=== PATIENT | female | born 1965 | race Hispanic/Latino ===

== ENCOUNTER → 2019-07-21 | Day surgery (SDC) | payer BC ==
[~2019-07-21] MED LIST: CENTRUM SILVER1 EAC3 PO; CITRACAL + D E1 EACH PO; FENTANYL CITRATE/PF 100MCG/2 ML INJ ONE; HYOSCYAMINE 0.125 MG TAB ONE; METFORMIN HCL500 MG PO; MIDAZOLAM HCL 2 MG/2 ML VIAL ONE; PREPARATION H C26 GM TOP; PROPOFOL IV EMULSION 10 MG/ML 50 ML VIAL ONE
[2019-07-21 17:30] VITALS: BP 113/70
--- NOTE | 2019-07-21 17:57 | Operative Report ---
DATE OF PROCEDURE: 07/21/2019 SURGEON: Pasha Granger MD PROCEDURE: Colonoscopy with polypectomy and biopsies. INDICATIONS FOR COLONOSCOPY: Rectal bleeding, loose stools, history of colon polyps. MEDICATIONS: The patient was done under MAC, please see anesthesiologist's note. PROCEDURE IN DETAIL: With the patient in left lateral decubitus position, a flexible fiberoptic Olympus colonoscope was inserted into the rectum with ease and advanced all the way to the cecum. Mucosa overlying the cecum grossly appeared to be within normal limits. The ileocecal valve was intubated and the scope was advanced into the terminal ileum. Biopsies were obtained. The scope was then withdrawn back into the colon. It was then withdrawn slowly and scattered diverticular disease was noted throughout the colon. Mucosa overlying the ascending and transverse grossly appeared to be within normal limits other than for diverticulosis. The mucosa overlying the left colon revealed some patchy mild inflammatory changes and random biopsies were obtained. A minute polyp was noted in the sigmoid colon that was hot biopsied. The sigmoid colon was excessively spastic and irritable and suboptimally visualized. One rectal polyp was removed per hot biopsy forceps. The scope was then retroflexed into the distal rectum and moderate-sized internal hemorrhoids were noted, none of which was actively bleeding. The scope was then straightened out, it was subsequently withdrawn. The patient tolerated the procedure well. IMPRESSION: 1. Pandiverticulosis. 2. Mild patchy left-sided colitis. 3. Sigmoid colon polyp, hot biopsied. Sigmoid colon was excessively irritable, spastic, and suboptimally visualized. 4. Rectal polyp, hot biopsied. 5. Internal hemorrhoids, none actively bleeding. PLAN: Followup histology. Followup stool studies. Initiate Bentyl 10 mg one p.o. t.i.d. and Visbiome one p.o. b.i.d. and Anucort-HC one suppository b.i.d. x10 days and p.r.n. The patient might benefit from a followup colonoscopy in 3 years. Pasha Granger MD [facility] [place] /[id number] cc: Hans Blue MD
[2019-07-21 19:14] LABS: WBC,FECAL (FECAL LACTOFERRIN) NEGATIVE (NEGATIVE)
[2019-07-22 12:26] LABS: C DIFFICILE TOXIN A&B AMP PROB NEGATIVE (NEGATIVE)
== END | disposition home or self-care (01) ==
LOC: OR 12:38
PROVIDERS: ATTEND Internal Medicine Gastroenterology
DX: K62.5 Hemorrhage of anus and rectum (principal); Z86.010 Personal history of colon polyps; R03.0 Elevated blood-pressure reading, without diagnosis of hypertension; K59.09 Other constipation; E11.9 Type 2 diabetes mellitus without complications; Z79.84 Long term (current) use of oral hypoglycemic drugs; Z88.8 Allergy status to other drugs, medicaments and biological substances; Z91.018 Allergy to other foods; K57.30 Diverticulosis of large intestine without perforation or abscess without bleeding; K51.50 Left sided colitis without complications; K63.5 Polyp of colon; K62.1 Rectal polyp; K64.8 Other hemorrhoids; D12.8 Benign neoplasm of rectum
CPT/HCPCS: 36415; 45384; 82948; 83630; 83993; 87045; 87177; 87328; 87493; J2250; J2704; J3010; 45380